=== PATIENT | male | born 1960 | race African-American/Black ===

== ENCOUNTER → 2020-07-27 | Day surgery (SDC) | payer OTHER ==
[~2020-07-27] VITALS: Ht 180.3 cm; Wt 155.0 kg
[~2020-07-27] MED LIST: BLOOD PRESSURE MED; IV RINGERS,LACTATED 1000ML 1,000 ML IV ONE; LIDOCAINE 2% PF 5 ML VIAL. ONE; PROPOFOL 10 MG/ML (20ML) VIAL. IV ONE
[2020-07-27 11:55] VITALS: BP 177/106
[2020-07-27 14:08] VITALS: BP 146/94
--- NOTE | 2020-07-27 22:15 | CONS ---
DATE OF CONSULTATION: 07/27/2020 GASTROENTEROLOGY CONSULTATION REFERRING PHYSICIAN: Jimmy Castorena MD. REASON FOR CONSULTATION: Colorectal screening. HISTORY OF PRESENT ILLNESS: This is a 59-year-old -[place] male with past medical history significant for hypertension, glaucoma seen for a screening colon exam. Bowel habits are regular without diarrhea or constipation. There has been no melena or hematochezia. FAMILY HISTORY: Unrevealing for colon polyps or colon cancer. He ____ otherwise without additional complaints. PAST MEDICAL HISTORY: Hypertension, glaucoma. ALLERGIES: None. MEDICATIONS: Unspecified blood pressure medication. SOCIAL HISTORY: He is a social drinker, nonsmoker. FAMILY HISTORY: Noncontributory. REVIEW OF SYSTEMS: Per records. PHYSICAL EXAMINATION: GENERAL: Reveals a well-nourished, well-developed male who is alert, cooperative, in no acute distress. VITAL SIGNS: The temperature is 97.8, pulse 68, respiration is 20. LUNGS: Clear. CARDIOVASCULAR: Reveals an S1, S2, without S3, S4 or appreciable murmur. ABDOMEN: Revealed a soft abdomen, normal bowel sounds. No appreciable hepatosplenomegaly. EXTREMITIES: No cyanosis, clubbing or edema. IMPRESSION: Colorectal screening is recommended at this time. Risks and benefits of procedure including the risk of hemorrhage and perforation, requiring operation were discussed. The patient is willing to proceed at this time. LAURIE/AJAY DR: Mabel TID: [id number] CC: JIMMY CASTORENA MD
--- NOTE | 2020-08-01 18:31 | PATHOLOGY ---
[facility] Accession Number: [id number] . 01 Material submitted: . sigmoid colon - SIGMOID POLYP . 01 Clinical history: . SCREENING COLONOSCOPY . 02 Diagnosis: Colon biopsy, sigmoid polyp: - Tubular adenoma. ([facility]:darrin; 08/01/2020) [facility] 08/01/2020 1447 Local . 02 Comment: There is no high-grade dysplasia or evidence of malignancy. ([facility]:darrin; 08/01/2020) . 02 Electronically signed: . Duc Noriega MD, Pathologist NPI- [id number] . 01 Gross description: . Received in formalin labeled "Mayo Donahue, sigmoid polyp" is a tineo-brown nodular mucosal polyp measuring 1.4 x 1.0 x 0.7 cm. The margin is inked and the specimen is sectioned and submitted in A1. ([facility] [place]; 07/29/2020) [facility] 07/29/2020 1503 Local . 02 Pathologist provided ICD-10: D12.5 . 02 CPT . 479003 Specimen Comment: A courtesy copy of this report has been sent to [phone], [phone] Specimen Comment: [id number] Specimen Comment: Report sent to / DR OSWALD Performed at: [facility] [place] [address] [facility] [address], [place] [id number] MD Joey Worthy MD Phone: [phone] Performed at: 02 [facility] [address] [place], [place] [id number] MD Duc Noriega MD Phone: [phone]
== END | disposition home or self-care (01) ==
LOC: ENDOS 11:00
PROVIDERS: ATTEND Internal Medicine Gastroenterology
DX: Z12.11 Encounter for screening for malignant neoplasm of colon (principal); K64.0 First degree hemorrhoids; K57.30 Diverticulosis of large intestine without perforation or abscess without bleeding; D12.5 Benign neoplasm of sigmoid colon; K63.89 Other specified diseases of intestine; I10 Essential (primary) hypertension; Z20.822 Contact with and (suspected) exposure to COVID-19; Z79.899 Other long term (current) drug therapy; Z98.890 Other specified postprocedural states; Z72.89 Other problems related to lifestyle
CPT/HCPCS: 45385; 87426; J2704; 88305

== ENCOUNTER 2020-09-10 07:20 | Emergency (ER) | payer OTHER ==
[~2020-09-10] VITALS: Ht 180.3 cm; Wt 66.0 kg
[~2020-09-10 07:20] MED LIST changes: -IV RINGERS,LACTATED 1000ML 1,000 ML IV ONE; -LIDOCAINE 2% PF 5 ML VIAL. ONE; -PROPOFOL 10 MG/ML (20ML) VIAL. IV ONE
[2020-09-10] MEDS ORDERED: methylPREDNISolone SOD SUCC PF 125 MG/2 ML VIAL. IM ONE (08:30)
[2020-09-10] MEDS ORDERED: diphenhydrAMINE 50 MG/ML VIAL IM ONE (08:30)
[2020-09-10] MEDS ORDERED: TRIA15OI9 TP (08:39)
[2020-09-10] MEDS ORDERED: CEPH500C PO (08:39)
[2020-09-10] MEDS ORDERED: PRED20TA PO (08:39)
--- NOTE | 2020-09-10 08:40 | PHYS DOC ---
Past Medical History Past Surgical History: No Surgical History General Adult EDM: Chief Complaint: UPPER EXTREMITY SWELLING HPI: HPI: Patient is a 60 year old male present to ER for evaluation of right hand and right wrist swelling. Patient said he was working for [employer] , yesterday he was trying to hop picker some trash bag, got stung on the right wrist by a wasp. He got up this morning noticed swelling and redness of his right wrist and hand so he came in for evaluation. Patient denies any chest melvi n or trouble breathing, no cough, no fever. Patient had not taken any medication. Review of Systems: Review of Systems: Constitutional: Denies fever or chills. [] Eyes: Denies change in visual acuity. [] HENT: Denies nasal congestion or sore throat. [] Respiratory: Denies cough or shortness of breath. [] Cardiovascular: Denies chest pain or edema. [] GI: Denies abdominal pain, nausea, vomiting, bloody stools or diarrhea. [] : Denies dysuria. [] Musculoskeletal: Denies back pain or joint pain. [] Integument: right wrist and right hand swollen with erythema on the dorsal surface. Neurologic: Denies headache, focal weakness or sensory changes. [] Endocrine: Denies polyuria or polydipsia. [] Lymphatic: Denies swollen glands. [] Psychiatric: Denies depression or anxiety. [] Heart Score: C/O Chest Pain: N/A Risk Factors: Risk Factors: DM, Current or recent (<one month) smoker, HTN, HLP, family history of CAD, obesity. Risk Scores: Score 0 - 3: 2.5% MACE over next 6 weeks - Discharge Home Score 4 - 6: 20.3% MACE over next 6 weeks - Admit for Clinical Observation Score 7 - 10: 72.7% MACE over next 6 weeks - Early Invasive Strategies Current Medications: Current Medications Medications (Trade) Dose Ordered Sig/Desmond Start Time Stop Time Status Last Admin Dose Admin Diphenhydramine HCl (Benadryl) 25 mg 1X ONCE 09/10/20 08:30 09/10/20 08:31 DC Methylprednisolone Sodium Succinate (SOLU-Medrol 125MG VIAL) 125 mg 1X ONCE 09/10/20 08:30 09/10/20 08:31 DC Allergies: Allergies: Allergies Coded Allergies Type Severity Reaction Last Updated Verified No Known Drug Allergies 5/27/21 No Physical Exam: PE: Constitutional: Well developed, well nourished, no acute distress, non-toxic appearance. [] HENT: Normocephalic, atraumatic, bilateral external ears normal, oropharynx moist, no oral exudates, nose normal. [] Eyes: PERRLA, EOMI, conjunctiva normal, no discharge. [] Neck: Normal range of motion, no tenderness, supple, no stridor. [] Cardiovascular:Heart rate regular rhythm, no murmur [] Lungs & Thorax: Bilateral breath sounds clear to auscultation [] Abdomen: Bowel sounds normal, soft, no tenderness, no masses, no pulsatile masses. [] Skin: Warm, dry, no erythema, no rash. [] Back: No tenderness, no CVA tenderness. [] Extremities: No tenderness, no cyanosis, no clubbing, ROM intact, no edema. [] Neurologic: Alert and oriented X 3, normal motor function, normal sensory function, no focal deficits noted. [] Psychologic: Affect normal, judgement normal, mood normal. [] Current Patient Data: Vital Signs: Vital Signs Date Time Temp Pulse Resp B/P (MAP) Pulse Ox O2 Delivery O2 Flow Rate FiO2 09/10/20 07:24 98.2 160/104 (111) 96 Room Air 98.2 EKG: EKG: [] Radiology/Procedures: Radiology/Procedures: [] Course & Med Decision Making: Course & Med Decision Making Pertinent Labs and Imaging studies reviewed. (See chart for details) Patient is a 60-year-old male who present to ER for evaluation of right wrist and right hand swelling due to insect bite. Patient was given Benadryl Solu- Medrol in the ED. Patient will discharge home with steroid cream, steroid pill. He was instructed to take Benadryl as needed for swelling and pain. We also prescribed him with a 7-day course cephalexin to prevent infection. Dragon Disclaimer: Dragon Disclaimer: This electronic medical record was generated, in whole or in part, using a voice recognition dictation system. Departure Departure Impression: Primary Impression: Insect bite of right wrist with local reaction Disposition: HOME / SELF CARE / HOMELESS Condition: STABLE Referrals: ALIDA OSWALD MD (PCP) Follow up with your doctor on Friday for reevaluation. Patient Instructions: Insect Sting Allergy Additional Instructions: Thank you for visiting our Emergency Department. We appreciate you trusting us with your care. If any additional problems come up don't hesitate to return to visit us. Please follow up with your primary care provider so they can plan additional care if needed and know about the problem that you had. If symptoms worsen come back to the Emergency Department. Any concerning symptoms that start such as chest pain, shortness of air, weakness or numbness on one side of the body, running high fevers or any other concerning symptoms return to the ER. Scripts Cephalexin (CEPHALEXIN) 500 Mg Capsule 1 CAP PO QID for 7 Days, #28 CAP Prov: ZAINA STARR DO 09/10/20 Triamcinolone Acetonide (TRIAMCINOLONE ACETONIDE 0.5% OINT) 15 Gm Oint...g. 1 VERONIKA TP TID, #60 GM 0 Refills apply to affected area(s) Prov: ZAINA STARR DO 09/10/20 Prednisone (PREDNISONE) 20 Mg Tablet 1 TAB PO DAILY for 7 Days, #7 TAB Prov: ZAINA STARR DO 09/10/20 ZAINA STARR DO Sep 10, 2020 08:40
[2020-09-10 09:02] VITALS: BP 121/77
== END 2020-09-10 09:02 | disposition home or self-care (01) ==
LOC: ER 07:20
DX: S60.861A Insect bite (nonvenomous) of right wrist, initial encounter (principal); W57.XXXA Bitten or stung by nonvenomous insect and other nonvenomous arthropods, initial encounter; Y93.89 Activity, other specified; Y92.89 Other specified places as the place of occurrence of the external cause; Y99.8 Other external cause status
CPT/HCPCS: 96372; 99284; J1200; J2930